=== PATIENT | male | born 1975 | race Caucasian/White ===

== ENCOUNTER → 2021-02-05 | Outpatient (CLI) | payer BC ==
[2021-02-05 15:49] LABS: BASOPHILS % 0.3 % (0.0-2.0); EOSINOPHILS % 1.2 % (0.0-5.0); HEMATOCRIT. 40.8 % (42.0-52.0); MEAN CORPUSCULAR HEMOGLOBIN 33.4 pg (28.0-32.0); MEAN CORPUSCULAR VOLUME 97.5 fL (80.0-94.0); MEAN PLATELET VOLUME 9.4 fl (7.4-10.4); MONOCYTES % 7.5 % (2.0-8.0); PLATELET 160 x1000/uL (130-400); RED BLOOD CELL COUNT 4.19 mill/uL (4.7-6.1); RED CELL DISTRIBUTION WIDTH 13.6 % (11.6-14.6)
[2021-02-05 16:06] LABS: CHLORIDE 106 mEq/L (98-107)
[2021-02-05 16:15] LABS: LDL CHOLESTEROL 105 mg/dL (5-100)
[2021-02-05 16:17] LABS: HDL CHOLESTEROL 52 mg/dL (40-59); TOTAL IRON BINDING CAPACITY 317 ug/dL (250-450)
[2021-02-05 16:19] LABS: T4 FREE 1.08 ng/dL (0.76-1.46)
[2021-02-05 16:28] LABS: PROSTRATE SPECIFIC AG TOTAL 0.33 ng/mL (0.0-4.0)
[2021-02-05 16:36] LABS: FOLIC ACID (FOLATE) SERUM 15.4 ng/mL (>5.38)
== END | disposition home or self-care (01) ==
LOC: LAB 15:11
PROVIDERS: ATTEND Family Medicine Adult Medicine
DX: Z00.00 Encounter for general adult medical examination without abnormal findings (principal)
CPT/HCPCS: 36415; 80053; 80061; 82607; 82652; 82728; 82746; 83036; 83540; 83550; 84153; 84439; 84443; 84481; 85025; G0103

== ENCOUNTER → 2022-05-20 | Outpatient (CLI) | payer BC ==
[2022-05-20 13:32] LABS: CLARITY URINE CLEAR (CLEAR); COLOR URINE DARK YELLOW (YELLOW); KETONES URINE 1+ (NEGATIVE); LEUKOCYTE ESTERASE URINE NEGATIVE (NEGATIVE); NITRITE URINE NEGATIVE (NEGATIVE); OCCULT BLOOD URINE NEGATIVE (NEGATIVE); PROTEIN URINE TRACE (NEGATIVE); SPECIFIC GRAVITY URINE 1.025 (1.005-1.030)
[2022-05-20 13:36] LABS: BASOPHILS % 0.4 % (0.0-2.0); EOSINOPHILS % 0.7 % (0.0-5.0); HEMATOCRIT. 43.3 % (42.0-52.0); HEMOGLOBIN. 15.2 g/dL (14.0-18.0); LYMPHOCYTES % 26.2 % (20.0-50.0); MEAN CORPUSCULAR HEMOGLOBIN 34.3 pg (28.0-32.0); MEAN CORPUSCULAR VOLUME 97.5 fL (80.0-94.0); MEAN PLATELET VOLUME 9.6 fl (7.4-10.4); MONOCYTES % 6.7 % (2.0-8.0); PLATELET 178 x1000/uL (130-400); RED BLOOD CELL COUNT 4.44 mill/uL (4.7-6.1)
[2022-05-20 13:46] LABS: CHLORIDE 103 mEq/L (98-107)
[2022-05-20 14:05] LABS: HDL CHOLESTEROL 56 mg/dL (40-59); LDL CHOLESTEROL 110 mg/dL (5-100); T4 FREE 0.85 ng/dL (0.76-1.46); TOTAL IRON BINDING CAPACITY 351 ug/dL (250-450)
[2022-05-20 14:25] LABS: VITAMIN B12 SERUM 422 pg/mL (211-911)
[2022-05-20 14:34] LABS: FERRITIN 197 ng/mL (22-322)
== END | disposition home or self-care (01) ==
LOC: LAB 12:45
PROVIDERS: ATTEND Family Medicine Adult Medicine
DX: Z00.00 Encounter for general adult medical examination without abnormal findings (principal); M10.9 Gout, unspecified; E03.9 Hypothyroidism, unspecified
CPT/HCPCS: 36415; 80053; 80061; 81003; 82306; 82607; 82728; 82746; 83036; 83540; 83550; 84439; 84443; 84481; 84550; 85025; 85651